=== PATIENT | female | born 1965 | race Caucasian/White ===

== ENCOUNTER 2016-12-26 06:33 | Day surgery (SDC) | payer BC ==
--- NOTE | 2016-12-12 06:44 | HP ---
PREOPERATIVE HISTORY AND PHYSICAL EXAM: DATE OF SURGERY/ADMISSION: 12/26/16 DATE OF OFFICE VISIT/ENCOUNTER: 12/11/16 ATTENDING SURGEON: Radha Rincon MD (DICTATED BY NICOLE JAMES) PROCEDURE: Right wrist arthroscopy, ulnar shortening osteotomy. CHIEF COMPLAINT: Right wrist pain. HISTORY OF PRESENT ILLNESS: This is a 51-year-old female, who sustained injury to her right wrist in March of 2016. She had a four-santiago accident. She flipped the four-santigao on to herself while climbing the hill and the handle bar landed on her wrist. Since then, she feels a sudden sharp pain when she reaches for something and especially when she is supinating her forearm. This has continued over time. At times, she might not had any pain, but at times it is quite significant. She did have x-rays taken at the time of injury at [facility] and there was no sign of fracture or dislocation. She denies any numbness or tingling associated with this injury. She recently had an MRI arthrogram, which showed a tear in the TFCC along with an ulnar positive variance. After examination by and discussion with Dr. Rincon, she has consented to proceed with surgical interventions for this problem in the form of a right wrist arthroscopy, ulnar shortening osteotomy. PAST MEDICAL HISTORY: Unremarkable. PAST SURGICAL HISTORY: 1. Bilateral knee ACL reconstruction. 2. Bilateral knee meniscal repair. 3. Cholecystectomy. CURRENT MEDICATIONS: Metamucil. ALLERGIES: No known drug allergies. FAMILY MEDICAL HISTORY: Heart disease and ovarian cancer. 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 She denies tobacco use, recreational drug use and alcohol use. REVIEW OF SYSTEMS: General: Negative for fevers, chills, or night sweats. No known anesthesia problems in the past. HEENT: Negative for headache, lightheadedness, or syncopal episodes. Integumentary: Negative for abrasions, lesion, or open wounds. Cardiothoracic: Negative for hypertension, chest pain , palpitations, or edema. Pulmonary: Negative for shortness of breath with exertion, chronic cough, COPD. GI: Negative for nausea, vomiting, diarrhea, constipation, or GERD. : Negative for nocturia, urinary frequency, urgency, history of UTIs, or kidney problems. Musculoskeletal: Positive for current complaint. Negative for chronic or intermittent back pain or history of fractures. Neurological: Negative for paresthesias, numbness, history of seizure, stroke, or epilepsy. Endocrine: Negative for diabetes or thyroid issues. Hematologic: Negative for easy bruising, anemia, excessive bleeding, or history of DVT. Infectious Disease: Negative for history of MRSA, hepatitis C, or HIV. PHYSICAL EXAMINATION GENERAL: Well-developed, well-nourished 51-year-old female, in no acute distress. VITAL SIGNS: Height 5 feet 8 inches, weight 210 pounds, blood pressure 117/80, pulse rate 81. HEENT: Normocephalic, atraumatic. Pupils are equal round and reactive to light and accommodation. Extraocular movements are intact. Throat is clear. NECK: Supple. No palpable lymph nodes. CARDIOVASCULAR: Regular rate and rhythm. S1, S2. No murmurs, rubs, or gallops. No edema. PULMONARY: Lungs are clear to auscultation bilaterally. No wheezes, rales, or rhonchi. ABDOMEN: Positive bowel sounds, soft, nontender. NEUROLOGICAL: Alert and oriented x3. Cranial nerves II through XII are intact. Sensation is intact to light touch. MUSCULOSKELETAL: On exam of her right wrist, she has tenderness to palpation on the ulnar aspect of her wrist just distal to the distal ulna. There is also tenderness at the distal radial ulnar joint and slightly along the ECU tendon. She has no tenderness along the FCU tendon. She has pain with passive ulnar deviation. No pain with supination. She has pain resisting ulnar deviation and a little bit of extension. She can make a full fist and fully extend her fingers. Her wrist flexion and extension is normal and minimally painful. IMAGING STUDIES: X-rays of the right wrist appear normal. MRI shows a tear of the TFCC in the right wrist. IMPRESSION: Right wrist TFCC tear. PLAN: The patient is scheduled to undergo a right wrist arthroscopy, ulnar shortening osteotomy with Dr. Rincon on 12/26/16. She will return to the office in 10 to 14 days postop for followup and suture removal. A prescription for [place] was e-scribed to the patient's pharmacy for postoperative pain management. NICOLE JAMES [id number]/[facility] #: [id number] [facility]
[~2016-12-26 06:33] MED LIST: Buffered Lidocaine 0.9% SYRIN* 5 ML/SYR SYRINGE INTRADERM ONE; Sodium Citrate/Citric Acid* 15 ML UDC PO ONE
[2016-12-26] MEDS ORDERED: ceFAZolin 2 GM PREMIX(*) 2 GM/50 ML BAG IVPB ONE (06:44)
[2016-12-26] MEDS ORDERED: Sodium Citrate/Citric Acid* 15 ML UDC ONE (06:45)
[2016-12-26] MEDS ORDERED: Buffered Lidocaine 0.9% SYRIN* 5 ML/SYR SYRINGE ONE (06:52)
[2016-12-26] MEDS ORDERED: Bupivacaine 0.5% SDV PF* 30 ML VIAL ONE (07:24)
[2016-12-26] MEDS ORDERED: Ketorolac INJ* 30 MG/ML 1 ML VIAL ONE (07:47)
[2016-12-26] MEDS ORDERED: fentaNYL* 50 MCG/ML 2 ML VIAL (100 MCG VIAL) ONE (07:47)
[2016-12-26] MEDS ORDERED: Lidocaine 2% PF * 5 ML VIAL ONE (07:47)
[2016-12-26] MEDS ORDERED: Propofol* 10 MG/ML 20 ML BTL IV PUSH ONE (07:47)
[2016-12-26] MEDS ORDERED: Dexamethasone IV* 4 MG/ML 1 ML (4 MG) ONE (08:21)
[2016-12-26] MEDS ORDERED: fentaNYL* 50 MCG/ML 2 ML VIAL (100 MCG VIAL) IV PRN (08:25)
[2016-12-26] MEDS ORDERED: DiMENhydriNATE IV* 50 MG/ML VIAL IV PUSH PRN (08:25)
[2016-12-26] MEDS ORDERED: Ondansetron INJ* 2 MG/ML VIAL ONE (08:54)
[2016-12-26] MEDS ORDERED: DiMENhydriNATE IV* 50 MG/ML VIAL ONE (09:44)
[2016-12-26 10:05] VITALS: BP 138/82
--- NOTE | 2016-12-26 11:05 | RAD ---
INDICATION: Right wrist and forearm surgery. COMPARISON: Comparison is made with a prior x-ray study of the right wrist from March 27, 2016 and a prior MRI of the right wrist from December 07, 2016. TECHNIQUE: 47 seconds of intermittent fluoroscopic guidance were provided and 5 spot films of the right wrist were obtained in the operating room. FINDINGS: The films demonstrate an ulnar shortening osteotomy. There is an osteotomy in the mid diaphysis of the ulna transfixed with with a surgical plate and multiple surgical screws. The bones are in normal alignment. IMPRESSION: INTRAOPERATIVE CONTROL FILMS. CPT II Codes: 6045F
--- NOTE | 2016-12-26 17:44 | OP ---
DATE OF OPERATION: 12/26/16 - [facility] DATE OF : 63 SURGEON: Radha Rincon MD WAD COMPRESSOR OPERATOR ADJUSTER: NICOLE Mehta ANESTHESIA: General. 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 OPERATIVE PROCEDURE: Right wrist arthroscopy, triangular fibrocartilage complex debridement and ulnar shortening osteotomy. ESTIMATED BLOOD LOSS: Zero. TOURNIQUET TIME: An hour and 10 minutes. INDICATION FOR PROCEDURE: Bridget Pedersen is an 51-year-old female with pain in her right wrist. MRI arthrogram shows a TFCC tear and she has ulnar positive variance of 3 mm. She presents for right wrist arthroscopy, debridement of the TFCC tear and ulnar shortening osteotomy. DESCRIPTION OF PROCEDURE: The patient was brought to the operating room, was given a general anesthetic and placed in the supine position on the operating table with a tourniquet around her right upper arm. Skin of the right upper extremity was prepped and draped in usual sterile fashion. The radiocarpal joint was filled with now 10 cc of 0.5% Marcaine plain. The hand and forearm were exsanguinated and the tourniquet elevated to 250 mmHg. A traction device was placed across the wrist, and three separate stab incisions were made on the dorsal aspect of the wrist to give us access to the midcarpal and radiocarpal joints. Radiocarpal arthroscopy showed the articular surface of the scaphoid lunate, triquetrum and radius to be intact. There was no tear of the scapholunate or lunotriquetral ligaments. There was a complex tear of the TFCC. Midcarpal arthroscopy showed slight widening of the scapholunate junction , but I was not able to place the arthroscope between the scaphoid and the lunate. The articular surfaces of the capitate, scaphoid lunate, triquetrum were intact. A 2.0 Gator shaver was placed in the 4-5 interval and the TFCC tear and surrounding synovitis was debrided. The arthroscopy and cements were then removed. A longitudinal incision was made along the subcutaneous border of the ulna and the fascia the flexor and extensor musculature was incised longitudinally. Retractors were placed around the ulna and a plate from the [facility] and a shortening set was secured with one distal screw in the locking hole and 3 proximal screws. The guidewires were placed and then the 4 mm cutting guide was secured to the plate and appropriate saw was used to make the first cut. The second cut was used with the appropriate guide and 4 mm of ulna was removed. The compression device was then secured with single bicortical K-wire and placed in the appropriate hole in the plate. The slotted hole screw was loosened and then the distal fragment was drawn to the proximal fragment. The screw was then retightened and with the appropriate guide, the drill for the lag screw was used to make a lag hole. An 18 mm lag screw was placed, which secured the osteotomy fragments in excellent position. The final 2 screws were placed and then the C-arm was used to visualize the distal radioulnar joint which was now 1 mm minus variance. All of the hardware and osteotomy fragments were in excellent position. The wound was irrigated. The fascia between the flexor and extensor musculature was closed with 2-0 Polysorb suture. Subcutaneous tissue was closed with 2-0 Polysorb. The skin incision for the osteotomy was closed with zackary and the arthroscopy skin incisions were closed with 4-0 nylon suture. The wounds were dressed with Xeroform, 4x4, Webril, and a splint. The patient tolerated the procedure well, was brought to the recovery room in good condition. [id number]/[facility] #: [id number] MARCIAL
== END 2016-12-26 10:15 | disposition home or self-care (01) ==
LOC: OREAST 06:33
PROVIDERS: ATTEND Orthopaedic Surgery
DX: S63.591A Other specified sprain of right wrist, initial encounter (principal); Z68.31 Body mass index [BMI] 31.0-31.9, adult; M25.831 Other specified joint disorders, right wrist; V86.59XA Driver of other special all-terrain or other off-road motor vehicle injured in nontraffic accident, initial encounter; Y92.89 Other specified places as the place of occurrence of the external cause
CPT/HCPCS: 76000; A9270-GY; C1713; C1776; J0690; J1100; J1240; J1885; J2405; J2704; J3010

== ENCOUNTER 2018-08-12 09:17 | Emergency (ER) | payer BC, OTHER ==
--- OUTSIDE RECORDS SUMMARY | 2018-08-12 09:36 | XMS REPORT | Continuity of Care Document ---
:1965 External Reference #:[id number] Author Name Toma Neumann O.D. Address [address] [place] [address] Care Team Providers Name Role Phone Filomena Szymanski M.D. Primary Care Physician Unavailable Payers Date Identification Numbers Payment Provider Subscriber Policy Number: [id number] [place] Plan Bridget Rivera PayID: [id number] [address] [place] [address] Advance Directives Description No Information Available Problems Date Description Provider Status Onset: 10/07/2014 Chalazion Toma Neumann O.D. Active Onset: 07/19/2018 Tear film insufficiency Toma Neumann O.D. Active Onset: 06/30/2015 Nuclear senile cataract Toma Neumann O.D. Active Onset: 10/07/2014 Internal hordeolum Toma Neumann O.D. Active Family History Date Family Member(s) Observation Comments Father No Current Problems Mother Macular Degeneration Social History Type Date Description Comments Sex Unknown Marital Status Legal Status: Occupation [employer] ETOH Use Rarely consumes alcohol Tobacco Use Start: Unknown Patient has never smoked Smoking Status Reviewed: 07/19/18 Patient has never smoked Allergies, Adverse Reactions, Alerts Date Description Reaction Status Severity Comments 06/30/2015 Lipitor Active 10/07/2014 NKDA Inactive Medications Medication Date Status Form Strength Qnty SIG Indications Ordering Provider Neomycin/Sonny 07/19/ Active Ointment 3.5-60250- 3.500g apply 1/4" in H00.15 Toma Carpenter ymyxin/Dexam 2019 0.1 m both eyes at [facility] bedtime for 2 O.D. weeks. Vitamin D 00/00/ Active Tablets 1000Unit every day Unknown 0000 Vitamin B-12 00/00/ Active Tablets 50mcg Unknown 0000 Refresh 00/ Active Solution 0.5% as needed Unknown Tears 0000 Neomycin/Sonny 04/02/ Hx Ointment 3.5-71859- 7gm apply a thin H00.12 Andrea ymyxin/Dexam 2017 - 0.1 strip to [facility], ethasone 07/05/ Right eye at M.D. 2019 night for 2 weeks, then discontinue Neomycin/Sonny 10/07/ Hx Ointment 3.5-97894- 3.500g Apply 1/4" To 373.2 Toma Carpenter ymyxin/Dexam 2014 - [facility] Bed[facility] For 2 O.D. 2016 Weeks Immunizations Description No Information Available Vital Signs Description No Information Available Results Description No Information Available Procedures Date Code Description Status 04/02/2017 05752 Est Patient Intermediate Exam Completed 06/30/2015 12984 Est Patient Comprehensive Exam Completed 10/07/2014 33334 Est Patient Intermediate Exam Completed 06/17/2013 46776 Determination Of Refractive State Completed 06/17/2013 37574 Est Patient Comprehensive Exam Completed 05/31/2011 84754 Determination Of Refractive State Completed 05/31/2011 06030 Est Patient Comprehensive Exam Completed 07/21/2009 95895 Determination Of Refractive State Completed 07/21/2009 71631 New Patient Comprehensive Exam Completed 05/19/2004 50526 Determination Of Refractive State Completed 05/19/2004 51844 New Patient Comprehensive Exam Completed Encounters Type Date Location Provider Dx Diagnosis Office Visit 11/21/2012 Aubrey Kimbrough, 372.72 Conjunctival 12:15p , pc Jeannine Hemorrhage Plan of Treatment 07/19/2018 - Toma Neumann O.D.H00.15 Chalazion left lower eyelidNew Medication:Neomycin/Polymyxin/Dexamethasone 3.5-87813-2.1 - apply 1/4" in both eyes at bedtime for 2 weeks.Comments:Start cely/poly/Dex ointment in both eyes and rub into all lids at bedtime for 2 weeks then stopuse ahot compress for 5- 10 minutes with lid massage at the end at least 2 x day Take 1000 mg's fish oil /omega's klkbgC89.12 Chalazion right lower bspgebV48.123 Dry eye syndrome of bilateral lacrimal glandsComments:continue artificial tears both eyes as oxpzghZ87.13 Age-related nuclear cataract, bilateralComments:You have been diagnosed with cataracts. If you are happy with your vision as it is now, then we willsee you at your next scheduled appointment. If you feel like your vision is getting worse before your scheduled appointment, please call Irais Thompson at [phone].Follow up:1 Year Follow Up You can expect to have your eyes dilated at your next visit. If Dr. Neumann orders any additional testing, it may require extra time. We recommend that you bring sunglasses, as dilation drops often make you light sensitive until they wear off. We always recommend you bring someone to drive you home if you are uncomfortable driving with your eyes dilated. If you have any questions before your next visit, feel free to call our office at .
--- NOTE | 2018-08-12 09:44 | UC ---
Ear Complaint HPI - HPI Summary HPI Summary: 53 yo female presents with left ear pain and decreased hearing for the last 2-3 days. She tells me that she has had issues with ear wax in the past and thinks she may have a build up of wax again. Has been applying ear drops to soften it, but nothing has come out. Denies recent illness, fever, sinus symptoms, sore throat, or cough. - History of Current Complaint Stated Complaint: EAR COMPLAINT Time Seen by Provider: 08/12/18 09:44 Hx Obtained From: Patient Hx Last Menstrual Period: 03/08/16 Onset/Duration: Gradual Onset Severity Initially: Mild Severity Currently: Mild Pain Intensity: 5 Pain Scale Used: 0-10 Numeric - Allergies/Home Medications Allergies/Adverse Reactions: Allergies Allergy/AdvReac Type Severity Reaction Status Date / Time No Known Allergies Allergy Verified 08/12/18 09:50 PMH/Surg Hx/FS Hx/Imm Hx - Additional Past Medical History Additional PMH: None - Surgical History Surgical History: Yes Surgery Procedure, Year, and Place: 1981 & 1983 RIGHT KNEE SURGERY, [facility] – [place]. 2008 BILATERAL TUBAL LIGATION, [facility] [place]. 2010 LEFT KNEE MENISCUS REPAIR, [place]. GALLBLADDER. 2017 RIGHT WRIST PLATING - Family History Known Family History: Negative: Cardiac Disease, Hypertension, Diabetes - Social History Occupation: Employed Full-time Lives: With Family Alcohol Use: None Substance Use Type: None Smoking Status (MU): Never Smoked Tobacco - Immunization History Most Recent Influenza Vaccination: 2013/2014 season Review of Systems All Other Systems Reviewed And Are Negative: Yes Constitutional: Positive: Negative Skin: Positive: Negative Eyes: Positive: Negative ENT: Positive: Ear Ache Respiratory: Positive: Negative Cardiovascular: Positive: Negative Gastrointestinal: Positive: Negative Neurological: Positive: Negative Psychological: Positive: Negative Physical Exam - Summary Physical Exam Summary: GENERAL: NAD. WDWN. No pain distress. SKIN: No rashes, sores, lesions, or open wounds. HEENT: Head: AT/NC Eyes: EOM intact. Conjunctiva clear without inflammation or discharge. Ears: Hearing grossly normal. LEFT TM occluded by yellow/brown cerumen. S/p irrigation - TM intact and WNL. No canal edema or drainage. Right TM WNL Nose: Nasal mucosa pink and moist. NTTP maxillary and frontal sinus. Throat: Posterior oropharynx without exudates, erythema, or tonsillar enlargement. Uvula midline. NECK: Supple. Nontender. No lymphadenopathy. CHEST: CTAB. No r/r/w. No accessory muscle use. Breathing comfortably and in no distress. CV: RRR. Without m/r/g. Pulses intact. NEURO: Alert. PSYCH: Age appropriate behavior. Triage Information Reviewed: Yes Vital Signs: Vital Signs: Temp Pulse Resp BP Pulse Ox 98.9 F 75 16 132/93 98 08/12/18 09:46 08/12/18 09:46 08/12/18 09:46 08/12/18 09:46 08/12/18 09:46 Vital Signs Reviewed: Yes Ear Complaint Course/Dx - Course Course Of Treatment: Left cerumen impaction with successful disimpaction via irrigation. Pt had complete resolution of symptoms. - Differential Dx/Diagnosis Provider Diagnosis: Cerumen impaction Discharge - Sign-Out/Discharge Documenting (check all that apply): Patient Departure All imaging exams completed and their final reports reviewed: No Studies - Discharge Plan Condition: Stable Disposition: HOME Patient Education Materials: Cerumen Impaction (ED) Referrals: Filomena Szymanski MD [Primary Care Provider] - Additional Instructions: If you develop a fever, shortness of breath, chest pain, new or worsening symptoms - please call your PCP or go to the ED. Your blood pressure was high at todays visit. Please see your primary provider within 4 weeks for recheck and re-evaluation. - Billing Disposition and Condition Condition: STABLE Disposition: Home
[2018-08-12 09:50] VITALS: BP 132/93
== END 2018-08-12 10:26 | disposition home or self-care (01) ==
LOC: UCEAST 09:17
DX: H61.22 Impacted cerumen, left ear (principal)
CPT/HCPCS: 99212; G0463

== ENCOUNTER 2019-08-01 10:53 | Emergency (ER) | payer OTHER, BC ==
[2019-08-01 12:20] VITALS: BP 111/67
--- NOTE | 2019-08-01 12:31 | UC ---
Respiratory Complaint HPI - HPI Summary HPI Summary: 54 yo female presents with URI symptoms. She tells me that for the past 2 weeks she has had sinus pain/pressure/congestion, post nasal drip, and an intermittently productive cough. Over the last 5 days she has felt fatigue and body aches. She has been taking dayquill with mild relief. She has felt feverish , but has not taken her temperature. Denies sore throat, SOB, chest pain, abdominal pain, n/v. She does not smoke. - History of Current Complaint Chief Complaint: UCGeneralIllness Stated Complaint: COUGH,CONGESTION,HEADACHE Time Seen by Provider: 08/01/19 12:21 Hx Obtained From: Patient Hx Last Menstrual Period: 03/08/16 Onset/Duration: Gradual Onset Severity Initially: Mild Severity Currently: Mild Pain Intensity: 3 Pain Scale Used: 0-10 Numeric - Allergies/Home Medications Allergies/Adverse Reactions: Allergies Allergy/AdvReac Type Severity Reaction Status Date / Time No Known Allergies Allergy Verified 08/01/19 12:18 Home Medications: Home Medications Amoxicillin PO (*) [Amoxicillin 875 MG (*)] 875 mg PO BID #14 tab 08/01/19 [Rx] PMH/Surg Hx/FS Hx/Imm Hx - Additional Past Medical History Additional PMH: None - Surgical History Surgical History: Yes Surgery Procedure, Year, and Place: 1981 & 1983 RIGHT [place] [facility] [place] BILATERAL [place], [facility] [place]. 2010 LEFT KNEE MENISCUS REPAIR, [place]. GALLBLADDER. 2017 RIGHT WRIST PLATING - Family History Known Family History: Negative: Cardiac Disease, Hypertension, Diabetes - Social History Lives: With Family Alcohol Use: None Substance Use Type: None Smoking Status (MU): Never Smoked Tobacco - Immunization History Most Recent Influenza Vaccination: 2013/2014 season Review of Systems All Other Systems Reviewed And Are Negative: No Constitutional: Positive: Fatigue, Other - Body aches Skin: Positive: Negative Eyes: Positive: Negative ENT: Positive: Nasal Discharge, Sinus Congestion, Sinus Pain/Tenderness Respiratory: Positive: Cough Cardiovascular: Positive: Negative Gastrointestinal: Positive: Negative Neurovascular: Positive: Negative Neurological/Mental Status: Positive: Negative Psychological: Positive: Negative Physical Exam - Summary Physical Exam Summary: GENERAL: NAD. WDWN. No pain distress. SKIN: No rashes, sores, lesions, or open wounds. HEENT: Head: AT/NC Eyes: EOM intact. Conjunctiva clear without inflammation or discharge. Ears: Hearing grossly normal. TMs intact, no bulging, erythema, or edema. Nose: Nasal mucosa mildly swollen and erythematous without discharge. TTP maxillary and frontal sinus. Positive post nasal drip Throat: Posterior oropharynx without exudates, erythema, or tonsillar enlargement. Uvula midline. NECK: Supple. Nontender. No lymphadenopathy. CHEST: Mild wheezing right lung. No accessory muscle use. Breathing comfortably and in no distress. CV: RRR. Pulses intact. NEURO: Alert. PSYCH: Age appropriate behavior. Triage Information Reviewed: Yes Vital Signs: Initial Vital Signs Temp 97.9 F 08/01/19 12:18 Pulse 80 08/01/19 12:18 Resp 16 08/01/19 12:18 BP 111/67 08/01/19 12:18 Pulse Ox 99 08/01/19 12:18 Laboratory Tests 08/01/19 12:46 Influenza A (Rapid) Negative Influenza B (Rapid) Negative Vital Signs Reviewed: Yes Diagnostics - Radiology CXR Radiology Interpretation Completed By: Radiologist Summary of Radiographic Findings: IMPRESSION: #. Elevated lung volumes suggest potential obstructive lung disease. No acute pulmonary or cardiac process evident. Respiratory Course/Dx - Course Course Of Treatment: POC flu negative. CXR as above. Suspect sinusitis/URI - Differential Dx/Diagnosis Provider Diagnosis: Sinusitis Discharge ED - Sign-Out/Discharge Documenting (check all that apply): Patient Departure All imaging exams completed and their final reports reviewed: Yes - Discharge Plan Condition: Stable Disposition: HOME Prescriptions: Amoxicillin PO (*) [Amoxicillin 875 MG (*)] 875 mg PO BID #14 tab Patient Education Materials: Sinusitis (ED), Upper Respiratory Infection (ED) Referrals: Filomena Szymanski MD [Primary Care Provider] - Additional Instructions: If you develop a fever, shortness of breath, chest pain, new or worsening symptoms - please call your PCP or go to the ED immediately. Continue taking your over the counter cold medication for symptomatic relief - Billing Disposition and Condition Condition: STABLE Disposition: Home
[2019-08-01 12:58] LABS: Influenza A Molecular Negative (Negative); Influenza B Molecular Negative (Negative)
== END 2019-08-01 13:17 | disposition home or self-care (01) ==
LOC: UCEAST 10:53
DX: J32.9 Chronic sinusitis, unspecified (principal); R91.8 Other nonspecific abnormal finding of lung field
CPT/HCPCS: 71046; 99212; G0463